=== PATIENT | male | born 1980 | race Caucasian/White ===

== ENCOUNTER 2017-02-07 14:44 | Inpatient (IN) | payer BC ==
[~2017-02-07] VITALS: Ht 182.9 cm; Wt 101.9 kg
[2017-02-07 14:50] VITALS: BP 103/72; PULSE 100; RESP 17; O2SAT 95
[2017-02-07 14:57] VITALS: BP 103/72; PULSE 107; RESP 22; TEMP 98.1; O2SAT 96
[2017-02-07] MEDS ORDERED: SODIUM CHLOR 0.9% 1000 ML INJ 1,000 ML IV ONE ×2 (15:00→16:07)
[2017-02-07] MEDS ORDERED: SODIUM CHLORIDE 0.9% FLUSH 10 ML FLUSH IVF PRN ×2 (15:00→16:15)
[2017-02-07] MEDS ORDERED: methylPREDNISolone SOD SUCC 125 MG/2 ML VIAL IVP ONE (15:00)
[2017-02-07] MEDS: RESP: ALBUTEROL 2.5 MG/IPRATROPIUM 0.5 MG NEB (SCH) INH ×2 (15:11→15:12)
--- NOTE | 2017-02-07 15:12 | PD ---
HPI Chief Complaint: OD/ Ingestion Time Seen by Provider: 15:07 Travel History International Travel<30 days: No Contact w/Intl Traveler<30days: No Traveled to known affect area: No History of Present Illness HPI Patient is a 36-year-old male brought in by EMS for evaluation after being found in an art gallery wandering. Patient states she's been awake for 2 days, he states he is desperate to sleep. He took 32 Fioricet tablets over the course of the night to obtain sleep. He was not intending to harm himself. Patient has a history of bipolar disorder. Subsequently patient reports a cough with wheezing. He states that he was on antibiotics and is beginning to feel better. He denies any other complaints at this time. He denies any visual auditory hallucinations, no suicidal or homicidal ideations. PFSH Past Medical History Asthma: Yes Bipolar Disorder: Yes Hiatal Hernia: Yes Insomnia: Yes Influenza Vaccination: No Past Surgical History Abdominal Surgery: Yes (HERNIA SURGERY) Social History Alcohol Use: Yes (OCCASIONALLY) Tobacco Use: No Substance Use: Yes (MARIJUANA) Allergies-Medications (Allergen,Severity, Reaction): Coded Allergies: No Known Allergies (Unverified , 02/07/17) Reported Meds & Prescriptions Reported Meds & Active Scripts Active Reported Fiorinal (Butalbital/Aspirin/Caffeine) 50-325-40 Mg Cap 2 Cap PO DAILY PRN Do not exceed 6 capsules/day. Proair Hfa 8.5 GM Inh (Albuterol Sulfate) 90 Mcg/Act Aer 2 Puff INH Q4-6H PRN 108 mcg/actuation Review of Systems Except as stated in HPI: all other systems reviewed are Neg Neurologic: Positive: Other (insomnia) Physical Exam Narrative GENERAL: Well-developed, well-nourished, alert male. Appears drowsy, no acute distress. SKIN: Focused skin assessment warm/dry. HEAD: Atraumatic. Normocephalic. EYES: Pupils equal and round. No scleral icterus. No injection or drainage. ENT: No nasal bleeding or discharge. Mucous membranes pink and moist. NECK: Trachea midline. No JVD. CARDIOVASCULAR: Regular rate and rhythm. No murmur appreciated. RESPIRATORY: No accessory muscle use. Clear to auscultation. Breath sounds equal bilaterally. GASTROINTESTINAL: Abdomen soft, non-tender, nondistended. Hepatic and splenic margins not palpable. MUSCULOSKELETAL: No obvious deformities. No clubbing. No cyanosis. No edema. NEUROLOGICAL: Drowsy but awake and alert. No obvious cranial nerve deficits. Motor grossly within normal limits. Speech is slow and purposeful, slightly slurred. PSYCHIATRIC: Appropriate mood and affect; insight and judgment normal. Data Data Last Documented VS Vital Signs Date Time Temp Pulse Resp B/P Pulse Ox O2 Delivery O2 Flow Rate FiO2 02/07/17 14:57 98.1 107 22 103/72 96 Room Air Orders Complete Blood Count With Diff (02/07/17 14:57) Comprehensive Metabolic Panel (02/07/17 14:57) Urinalysis - C+S If Indicated (02/07/17 14:57) Electrocardiogram (02/07/17 14:57) Oximetry (02/07/17 14:57) Iv Access Insert/Monitor (02/07/17 14:57) Ecg Monitoring (02/07/17 14:57) Psych Screen (02/07/17 14:57) Sodium Chloride 0.9% Flush (Ns Flush) (02/07/17 15:00) Drug Screen, Random Urine (02/07/17 14:57) Alcohol (Ethanol) (02/07/17 14:57) Salicylates (Aspirin) (02/07/17 14:57) Tylenol (Acetaminophen) (02/07/17 14:57) Sodium Chlor 0.9% 1000 Ml Inj (Ns 1000 M (02/07/17 15:00) Chest, Single Ap (02/07/17 ) Methylprednisolone So Succ Inj (Solumedr (02/07/17 15:00) Albuterol-Ipratropium Neb (Duoneb Neb) (02/07/17 15:00) Sodium Chloride 0.9% Flush (Ns Flush) (02/07/17 16:15) Acetylcysteine 20% Liq (Mucomyst 20% Liq (02/07/17 16:15) Acetylcysteine 20% Liq (Mucomyst 20% Liq (02/07/17 20:15) Sodium Chlor 0.9% 1000 Ml Inj (Ns 1000 M (02/07/17 16:07) Nicotine 21 Mg Patch.24 Hr (Habitrol 21 (02/07/17 16:30) Admit Order (Ed Use Only) (02/07/17 16:29) Labs Laboratory Tests Test 02/07/17 02/07/17 15:10 15:15 White Blood Count 13.7 TH/MM3 Red Blood Count 4.31 MIL/MM3 Hemoglobin 13.4 GM/DL Hematocrit 40.4 % Mean Corpuscular Volume 93.8 FL Mean Corpuscular Hemoglobin 31.1 PG Mean Corpuscular Hemoglobin 33.1 % Concent Red Cell Distribution Width 13.2 % Platelet Count 259 TH/MM3 Mean Platelet Volume 7.6 FL Neutrophils (%) (Auto) 71.9 % Lymphocytes (%) (Auto) 17.2 % Monocytes (%) (Auto) 8.1 % Eosinophils (%) (Auto) 2.2 % Basophils (%) (Auto) 0.6 % Neutrophils # (Auto) 9.9 TH/MM3 Lymphocytes # (Auto) 2.4 TH/MM3 Monocytes # (Auto) 1.1 TH/MM3 Eosinophils # (Auto) 0.3 TH/MM3 Basophils # (Auto) 0.1 TH/MM3 CBC Comment DIFF FINAL Differential Comment Sodium Level 137 MEQ/L Potassium Level 3.5 MEQ/L Chloride Level 102 MEQ/L Carbon Dioxide Level 25.5 MEQ/L Anion Gap 10 MEQ/L Blood Urea Nitrogen 21 MG/DL Creatinine 1.16 MG/DL Estimat Glomerular Filtration 71 ML/MIN Rate Random Glucose 82 MG/DL Calcium Level 8.6 MG/DL Total Bilirubin 0.3 MG/DL Aspartate Amino Transf 35 U/L (AST/SGOT) Alanine Aminotransferase 48 U/L (ALT/SGPT) Alkaline Phosphatase 95 U/L Total Protein 7.4 GM/DL Albumin 4.0 GM/DL Acetaminophen Level 42.9 MCG/ML Ethyl Alcohol Level LESS THAN 3 MG/DL Salicylates Level LESS THAN 1.7 MG/DL MDM Medical Decision Making Medical Screen Exam Complete: Yes Emergency Medical Condition: Yes Interpretation(s) Vital Signs Date Time Temp Pulse Resp B/P Pulse Ox O2 Delivery O2 Flow Rate FiO2 02/07/17 14:57 98.1 107 22 103/72 96 Room Air 02/07/17 14:50 100 17 103/72 95 Differential Diagnosis Overdose versus mood disorder versus substance abuse versus suicidal ideations versus other Narrative Course Patient is a 36-year-old male brought in by [facility] for evaluation after possible overdose. Patient states that he took 32 Fioricet over the course of the night in order to obtain sleep. He denies any intentional overdose in order to harm himself. Poison control was called by Brianne LOGAN. Care is supportive currently, they recommended EKG, salicylate level, CBC, CMP. IV fluids initiated and labs and imaging ordered and pending. Chest x-ray shows no acute disease Acetaminophen level resulted a 42.9. Patient was asked once again when he took the Fioricet. He states that he took all of the 32 tablets today. He did not state what time he took the pills as he appears to have lost time, but it was today after 7:00 this morning. Mucomyst ordered. [facility] paged for admission. Dr. Peralta accepted admission. Discussed with patient, he is agreeable to stay currently. His vital signs remained stable. Diagnosis Primary Impression: Overdose by acetaminophen Qualified Code: T39.1X1A - Overdose by acetaminophen, accidental or unintentional, initial encounter Additional Impression: Mood disorder Admitting Information Admitting Physician Requests: Admit Condition: Peggy Llamas HOGSHEAD WEIGHER February 07, 2017 15:12
[2017-02-07 15:23] LABS: AUTOMATED NEUTROPHIL # 9.9 TH/MM3 (1.8-7.7); BASOPHIL # 0.1 TH/MM3 (0-0.2); BASOPHIL % 0.6 % (0.0-2.0); EOSINOPHIL # 0.3 TH/MM3 (0-0.4); EOSINOPHIL % 2.2 % (0.0-4.0); HEMATOCRIT 40.4 % (39.0-51.0); HEMO FLAGS DIFF FINAL; LYMPH % 17.2 % (9.0-44.0); LYMPHOCYTE # 2.4 TH/MM3 (1.0-4.8); MEAN CELL VOLUME 93.8 FL (80.0-100.0); MEAN CORPUSCULAR HEMOGLOBIN 31.1 PG (27.0-34.0); MEAN CORPUSCULAR HGB CONC 33.1 % (32.0-36.0); MONO % 8.1 % (0.0-8.0); NEUT % 71.9 % (16.0-70.0); PLATELET COUNT 259 TH/MM3 (150-450); RED BLOOD COUNT 4.31 MIL/MM3 (4.50-5.90); RED CELL DISTRIBUTION WIDTH 13.2 % (11.6-17.2); WHITE BLOOD COUNT 13.7 TH/MM3 (4.0-11.0)
[2017-02-07] MEDS ORDERED: FIORINAL2 PO (15:35)
[2017-02-07] MEDS ORDERED: ALBUAER3 INH (15:35)
[2017-02-07 15:39] LABS: ANION GAP 10 MEQ/L (5-15); AST (GOT) 35 U/L (15-37); BICARBONATE 25.5 MEQ/L (21.0-32.0); BLOOD UREA NITROGEN 21 MG/DL (7-18); CHLORIDE 102 MEQ/L (98-107); GLOMERULAR FILTRATION RATE 71 ML/MIN (>89); POTASSIUM 3.5 MEQ/L (3.5-5.1); SODIUM (NA) 137 MEQ/L (136-145)
[2017-02-07 15:42] LABS: ACETAMINOPHEN 42.9 MCG/ML (10.0-30.0); ALKALINE PHOSPHATASE 95 U/L (45-117); ALT (GPT) 48 U/L (12-78); TOTAL BILIRUBIN ADULT 0.3 MG/DL (0.2-1.0)
--- NOTE | 2017-02-07 15:50 | PD ---
Physical Exam Narrative I, Dr. Griffith, have reviewed the advance practice practitioner's documentation and am in agreement, met with the patient face to face, made the diagnosis, and the medical decision making was done by me. *My assessment and Findings: Bipolar disorder vs. overdose 36yo M with bipolar disorder here after overdosing on fioricet. Pt states he has had insomnia for 15 years and last 2 days, had difficulty sleeping so decided to take 32 pills of fioricet. Pt denies any suicidal or homicidal ideation. Pt does seem bizarre. Labs reviewed acetaminophen level of 42.9 and pt was started on n-acetylcysteine. Pt is admitted to hospitalist for acetaminophen overdose and will be seen by psych on the floor. Pt given NS IVF. Data Data Last Documented VS Vital Signs Date Time Temp Pulse Resp B/P Pulse Ox O2 Delivery O2 Flow Rate FiO2 02/07/17 14:57 98.1 107 22 103/72 96 Room Air Orders Complete Blood Count With Diff (02/07/17 14:57) Comprehensive Metabolic Panel (02/07/17 14:57) Urinalysis - C+S If Indicated (02/07/17 14:57) Electrocardiogram (02/07/17 14:57) Oximetry (02/07/17 14:57) Iv Access Insert/Monitor (02/07/17 14:57) Ecg Monitoring (02/07/17 14:57) Psych Screen (02/07/17 14:57) Sodium Chloride 0.9% Flush (Ns Flush) (02/07/17 15:00) Drug Screen, Random Urine (02/07/17 14:57) Alcohol (Ethanol) (02/07/17 14:57) Salicylates (Aspirin) (02/07/17 14:57) Tylenol (Acetaminophen) (02/07/17 14:57) Sodium Chlor 0.9% 1000 Ml Inj (Ns 1000 M (02/07/17 15:00) Chest, Single Ap (02/07/17 ) Methylprednisolone So Succ Inj (Solumedr (02/07/17 15:00) Albuterol-Ipratropium Neb (Duoneb Neb) (02/07/17 15:00) Sodium Chloride 0.9% Flush (Ns Flush) (02/07/17 16:15) Acetylcysteine 20% Liq (Mucomyst 20% Liq (02/07/17 16:15) Acetylcysteine 20% Liq (Mucomyst 20% Liq (02/07/17 20:15) Sodium Chlor 0.9% 1000 Ml Inj (Ns 1000 M (02/07/17 16:07) Nicotine 21 Mg Patch.24 Hr (Habitrol 21 (02/07/17 16:30) Admit Order (Ed Use Only) (02/07/17 16:29) Labs Laboratory Tests Test 02/07/17 02/07/17 15:10 15:15 White Blood Count 13.7 TH/MM3 Red Blood Count 4.31 MIL/MM3 Hemoglobin 13.4 GM/DL Hematocrit 40.4 % Mean Corpuscular Volume 93.8 FL Mean Corpuscular Hemoglobin 31.1 PG Mean Corpuscular Hemoglobin 33.1 % Concent Red Cell Distribution Width 13.2 % Platelet Count 259 TH/MM3 Mean Platelet Volume 7.6 FL Neutrophils (%) (Auto) 71.9 % Lymphocytes (%) (Auto) 17.2 % Monocytes (%) (Auto) 8.1 % Eosinophils (%) (Auto) 2.2 % Basophils (%) (Auto) 0.6 % Neutrophils # (Auto) 9.9 TH/MM3 Lymphocytes # (Auto) 2.4 TH/MM3 Monocytes # (Auto) 1.1 TH/MM3 Eosinophils # (Auto) 0.3 TH/MM3 Basophils # (Auto) 0.1 TH/MM3 CBC Comment DIFF FINAL Differential Comment Sodium Level 137 MEQ/L Potassium Level 3.5 MEQ/L Chloride Level 102 MEQ/L Carbon Dioxide Level 25.5 MEQ/L Anion Gap 10 MEQ/L Blood Urea Nitrogen 21 MG/DL Creatinine 1.16 MG/DL Estimat Glomerular Filtration 71 ML/MIN Rate Random Glucose 82 MG/DL Calcium Level 8.6 MG/DL Total Bilirubin 0.3 MG/DL Aspartate Amino Transf 35 U/L (AST/SGOT) Alanine Aminotransferase 48 U/L (ALT/SGPT) Alkaline Phosphatase 95 U/L Total Protein 7.4 GM/DL Albumin 4.0 GM/DL Acetaminophen Level 42.9 MCG/ML Ethyl Alcohol Level LESS THAN 3 MG/DL Salicylates Level LESS THAN 1.7 MG/DL MDM Supervised Visit with MATTHEW: Yes Interpretation(s) EKG: Sinus tachycardia at 100bpm. Narrow QRS. Normal axis. No ST segment elevation or depression. QTc 415ms. Diagnosis Primary Impression: Overdose by acetaminophen Qualified Code: T39.1X1A - Overdose by acetaminophen, accidental or unintentional, initial encounter Admitting Information Admitting Physician Requests: Vy Quezada DO February 07, 2017 15:50
--- NOTE | 2017-02-07 15:56 | RADRPT ---
EXAM DATE/TIME: 02/07/2017 15:36 [place] COMPARISON: No previous studies available for comparison. INDICATIONS : Coughing, wheezing, no chest pain MEDICAL HISTORY : asthma, insomnia SURGICAL HISTORY : None. ENCOUNTER: Initial ACUITY: 2 days PAIN SCORE: 0/10 LOCATION: Bilateral chest FINDINGS: A single view of the chest demonstrates the lungs to be symmetrically aerated without evidence of mas s, infiltrate or effusion. The cardiomediastinal contours are unremarkable. Osseous structures are intact. CONCLUSION: No acute disease. Juan C Saucedo MD on February 07, 2017 at 15:54 Board Certified Radiologist. This report was verified electronically.
[2017-02-07] MEDS ORDERED: ACETYLCYSTEINE 20% 6,000 MG/30 ML ORAL SOLN VIAL PO ONE (16:15)
[2017-02-07] MEDS ORDERED: NICOTINE 21 MG/24 HR PATCH T-DERMAL ONE (16:30)
[2017-02-07 16:38] VITALS: BP 105/71; PULSE 112; RESP 19; O2SAT 100
[2017-02-07 17:13] LABS: BLOOD, URINE NEG (NEG); GLUCOSE,URINE NEG (NEG); KETONE, URINE TRACE mg/dL (NEG); NITRITE,URINE NEG (NEG); URINE COLOR LIGHT-YELLOW (YELLW/STRAW)
[2017-02-07 17:34] LABS: COMMENT (UR) CULT NOT INDICATED; CULTURE IF INDICATED CULT NOT INDICATED
--- NOTE | 2017-02-07 17:35 | HHI.HP ---
[facility] Unknown Admission Diagnosis OVERDOSE Diagnoses: Chief Complaint: Fioricet overdose Travel History International Travel<30 Days: No Contact w/Intl Traveler <30 Da: No Traveled to Known Affected Are: No History of Present Illness Patient is a 36-year-old male with PMHx of asthma, bipolar disorder, insomnia who came in to the hospital after being found wandering in an art gallery. Patient states he took about 30+ Fioricet tablets because he is desperate to sleep. Reports he's been awake for more than 2-3 days. Patient states that he unintentionally took the medication, without intention to harm himself. Reports he used to medication secondary to having a lipoma that causes headaches. Patient reports he has history of bipolar disorder. Denies pain and discomfort. Denies SOB/ dyspnea. Denies chest pain, palpitations, headaches, dizziness. Denies fevers, chills, n/v/d. Acetaminophen level 42.9. WBC 13.7, RBC 4.31 Chest x-ray no acute disease Review of Systems Constitutional: DENIES: Fever, Chills, Dizziness Endocrine: DENIES: Heat/cold intolerance Eyes: DENIES: Blurred vision, Diplopia, Eye pain Ears, nose, mouth, throat: DENIES: Tinnitus, Hearing loss, Nasal discharge, Oral lesions Respiratory: COMPLAINS OF: Cough, DENIES: Apneas, Wheezing, Hemoptysis Cardiovascular: DENIES: Chest pain, Palpitations, Syncope, Dyspnea on Exertion Gastrointestinal: DENIES: Abdominal pain, Black stools, Bloody stools, Constipation, Nausea, Vomiting Musculoskeletal: DENIES: Joint pain, Muscle aches Integumentary: DENIES: Abnormal pigmentation Immunologic/allergic: DENIES: Eczema Neurologic: DENIES: Abnormal gait, Localized weakness, Paresthesias Psychiatric: DENIES: Suicidal Ideation, Homicidal Ideation Except as stated in HPI: all other systems reviewed are Neg Past Family Social History Past Medical History Asthma Bipolar disorder Insomnia Lipoma Thyroid problems without hypo or hyper thyroidism Past Surgical History Umbilical hernia repair with mesh 2 years ago Right hand surgery (Surgery Reported Medications Reported Meds & Active Scripts Active Reported Fiorinal (Butalbital/Aspirin/Caffeine) 50-325-40 Mg Cap 2 Cap PO DAILY PRN Do not exceed 6 capsules/day. Proair Hfa 8.5 GM Inh (Albuterol Sulfate) 90 Mcg/Act Aer 2 Puff INH Q4-6H PRN 108 mcg/actuation Allergies: Coded Allergies: No Known Allergies (Unverified , 02/07/17) Active Ordered Medications Current Medications Medications (Trade) Dose Ordered Sig/[place] Route Start Time Stop Time Status Last Admin (NS Flush) 2 ml UNSCH PRN IVF 02/07/17 15:00 (NS Flush) 2 ml UNSCH PRN IVF 02/07/17 16:15 (Mucomyst 20% Liq) 6,800 mg Q4H PO 02/07/17 20:15 Family History Father have heart disease, diabetes Mother alcohol use Social History Lives with girlfriend of 18 years Occasional alcohol use Former smoker, quit 7 years ago, 2 pack per day smoking Previous marijuana use Physical Exam Vital Signs Vital Signs Date Time Temp Pulse Resp B/P Pulse Ox O2 Delivery O2 Flow Rate FiO2 02/07/17 16:38 112 19 105/71 100 Room Air 02/07/17 14:57 98.1 107 22 103/72 96 Room Air 02/07/17 14:50 100 17 103/72 95 Physical Exam GENERAL: This is a well-nourished, well-developed patient, in no apparent distress. SKIN: Warm and dry. Abrasion right george area HEAD: Normocephalic. No temporal or scalp tenderness. EYES: Pupils equal round and reactive. No scleral icterus. No injection or drainage. ENT: Nose without bleeding. Throat without erythema. Uvula midline. Airway patent. NECK: Trachea midline. No JVD or lymphadenopathy. CARDIOVASCULAR: Tachycardia without murmurs, gallops, or rubs. RESPIRATORY: Clear to auscultation. Breath sounds equal bilaterally. No wheezes , rales, or rhonchi. GASTROINTESTINAL: Abdomen soft, non-tender, nondistended. Bowel sounds active 4 MUSCULOSKELETAL: Extremities without clubbing, cyanosis, or edema. No joint tenderness, effusion, or edema noted. NEUROLOGICAL: Awake and alert. Oriented to time, place, person. Slight delay with thought process and speech. Motor and sensory grossly within normal limits. Laboratory Laboratory Tests Test 02/07/17 02/07/17 15:10 15:15 White Blood Count 13.7 Red Blood Count 4.31 Hemoglobin 13.4 Hematocrit 40.4 Mean Corpuscular Volume 93.8 Mean Corpuscular Hemoglobin 31.1 Mean Corpuscular Hemoglobin 33.1 Concent Red Cell Distribution Width 13.2 Platelet Count 259 Mean Platelet Volume 7.6 Neutrophils (%) (Auto) 71.9 Lymphocytes (%) (Auto) 17.2 Monocytes (%) (Auto) 8.1 Eosinophils (%) (Auto) 2.2 Basophils (%) (Auto) 0.6 Neutrophils # (Auto) 9.9 Lymphocytes # (Auto) 2.4 Monocytes # (Auto) 1.1 Eosinophils # (Auto) 0.3 Basophils # (Auto) 0.1 CBC Comment DIFF FINAL Differential Comment Sodium Level 137 Potassium Level 3.5 Chloride Level 102 Carbon Dioxide Level 25.5 Anion Gap 10 Blood Urea Nitrogen 21 Creatinine 1.16 Estimat Glomerular Filtration 71 Rate Random Glucose 82 Calcium Level 8.6 Total Bilirubin 0.3 Aspartate Amino Transf 35 (AST/SGOT) Alanine Aminotransferase 48 (ALT/SGPT) Alkaline Phosphatase 95 Total Protein 7.4 Albumin 4.0 Acetaminophen Level 42.9 Ethyl Alcohol Level LESS THAN 3 Salicylates Level LESS THAN 1.7 Result Diagram: 02/07/17 1510 02/07/17 1510 Assessment and Plan Problem List: (1) Overdose by acetaminophen ICD Code: T39.1X1A Status: Acute (2) Mood disorder ICD Code: F39 Status: Acute Assessment and Plan Patient is a 36-year-old male with PMHx of asthma, bipolar disorder, insomnia who came in to the hospital after being found wandering in an art gallery. Patient states he took about 30+ Fioricet tablets because he is desperate to sleep. Reports he's been awake for more than 2-3 days. Patient states that he unintentionally took the medication, without intention to harm himself. Reports he used to medication secondary to having a lipoma that causes headaches. Fioricet overdose Tylenol overdose - Patient unintentionally took Fioricet >30tablets to aid him to sleep - Acetaminophen level 42.9 - Patient was given Mucomyst 13,600 in the ED, 2 L IV NS fluid bolus, Solu- Medrol 125 mg - EKG reviewed by me sinus tachycardia heart rate 100, nonspecific ST elevation, QT interval within normal - Mucomyst 20% liquid 6800 mg every 4 hours based on 72 hour treatment protocol. - Poison control notified by Brianne LOGAN. Continue to report with poison control. - Salicylate level within normal, CBC with slight leukocytosis, CMP slightly elevated BUN of 21, EGFR 71, otherwise liver enzymes within normal - Repeat labs in the morning CBC, CMP, acetaminophen level - Place on telemetry. - Neuro checks - patient neurological status with slight delay on thought process and speech may be caused by the medication, unknown baseline neuro but oriented to time, place, and person Asthma, not in exacerbation - DuoNeb's when necessary - Chest x-ray showed no acute disease DVT prop SCDs Written by Marcelo Resendez, acting as scribe for Dr. Peralta on 02/07/17 at 17:30. Code Status Full code Discussed Condition With Patient, nursing, ED attending Attending Statement The exam, history, and the medical decision-making described in the above note were completed with the assistance of the mid-level provider. I reviewed and agree with the findings presented. I attest that I had a [id number] encounter with the patient on the same day, and personally performed and documented my assessment and findings in the medical record. Patient has no complaints. He denies any abdominal pain or any nausea or vomiting. Patient stated that he ingested Fioricets that he able to sleep. Gen NAD Resp CTA B/L Abd soft NDNT. No hepatosplenomegaly. Neuro: AAO X 3 but slow in speech. Motor and sensory grossly intact. Overdose unintentional -Acetaminophen levels elevated but normal LFTs. -Patient on Mucomyst protocol. -Continue to monitor clinically. Problem Qualifiers (1) Overdose by acetaminophen: Qualified Code: T39.1X1A - Overdose by acetaminophen, accidental or unintentional, initial encounter Marcelo Amaya February 07, 2017 17:35 Alicia Peralta MD February 07, 2017 18:46
[2017-02-07] MEDS ORDERED: SENNOSIDES 8.6 MG TAB PO PRN (17:45)
[2017-02-07] MEDS ORDERED: ONDANSETRON HCL 4 MG/2 ML VIAL IVP PRN (17:45)
[2017-02-07] MEDS ORDERED: NALOXONE HCL 0.4 MG/ML AMP IV PRN (17:45)
[2017-02-07] MEDS ORDERED: RESP: ALBUTEROL 2.5 MG/IPRATROPIUM 0.5 MG NEB (PRN) NEB (17:45)
[2017-02-07 18:44] VITALS: BP 123/76; PULSE 109; RESP 18; TEMP 98.5; O2SAT 96
[2017-02-07 20:13] VITALS: PULSE 107
[2017-02-07] MEDS ORDERED: LITH600C PO (20:13)
[2017-02-07] MEDS ORDERED: TRAZ100T4 PO (20:13)
[2017-02-07] MEDS ORDERED: SERO100T PO (20:13)
[2017-02-07] MEDS ORDERED: BUSP5TAB PO (20:13)
[2017-02-07] MEDS ORDERED: TEMAZEPAM 15 MG CAP PO PRN (20:30)
[2017-02-07] MEDS: ACETYLCYSTEINE 20% 6,000 MG/30 ML ORAL SOLN VIAL PO SCH (21:38)
[2017-02-07 21:41] VITALS: BP 113/60; PULSE 109; RESP 20; TEMP 97.1; O2SAT 97
[2017-02-07 23:29] LABS: AMPHETAMINE, URINE NEG (NEG); BARBITURATES, URINE POS (NEG); COCAINE, URINE NEG (NEG)
[2017-02-08] MEDS ORDERED: ALPRAZolam 0.5 MG TAB PO ONE (00:45)
[2017-02-08] MEDS: ACETYLCYSTEINE 20% 6,000 MG/30 ML ORAL SOLN VIAL PO SCH ×4 (01:25→12:15)
[2017-02-08] MEDS ORDERED: QUEtiapine FUMARATE 100 MG TAB PO SCH (01:27)
[2017-02-08] MEDS ORDERED: traZODone HCL 100 MG TAB PO ONE (01:30)
--- NOTE | 2017-02-08 01:36 | HHI.PR ---
Addendum to Inpatient Note Addendum Reason: Additional Documentation Additional Information I was notified by nursing the patient wanted to leave AMA. His girlfriend was contacted who raised concern about suicide attempt. He has a history of same per the girlfriend. On my evaluation, the patient is pacing, pressured speech. Racing thoughts. States he hasn't slept for 5 days. Although he is alert and oriented, he has poor insight into his medical condition and does not have capacity to leave AMA. Based on discussion with nursing, significant other and my evaluation, patient is not a safe discharge. Patient reports that "he will take anything or do anything to go to sleep when he gets home". [place] noting the patient took 30 tab of Fioricet in an attempt to sleep. - Patient is obviously manic. He is not a safe discharge. Patient will be Jensen acted until he is seen by psychiatry. - Will resume his home medications including Seroquel and trazodone to help with sleep. Zan Hyatt MD February 08, 2017 01:36
[2017-02-08 06:34] VITALS: BP 123/73; PULSE 91; RESP 18; TEMP 96.1; O2SAT 99
[2017-02-08 07:03] LABS: AUTOMATED NEUTROPHIL # 12.3 TH/MM3 (1.8-7.7); BASOPHIL % 0.1 % (0.0-2.0); HEMATOCRIT 37.6 % (39.0-51.0); HEMO FLAGS DIFF FINAL; LYMPH % 11.2 % (9.0-44.0); LYMPHOCYTE # 1.7 TH/MM3 (1.0-4.8); MEAN CELL VOLUME 93.2 FL (80.0-100.0); MEAN CORPUSCULAR HGB CONC 34.4 % (32.0-36.0); MONO % 7.3 % (0.0-8.0); NEUT % 81.4 % (16.0-70.0); PLATELET COUNT 251 TH/MM3 (150-450); RED BLOOD COUNT 4.04 MIL/MM3 (4.50-5.90); RED CELL DISTRIBUTION WIDTH 13.3 % (11.6-17.2); WHITE BLOOD COUNT 15.2 TH/MM3 (4.0-11.0)
[2017-02-08 07:44] LABS: ACETAMINOPHEN LESS THAN 2.0 MCG/ML (10.0-30.0); ALKALINE PHOSPHATASE 93 U/L (45-117); ALT (GPT) 44 U/L (12-78); ANION GAP 9 MEQ/L (5-15); AST (GOT) 25 U/L (15-37); BICARBONATE 25.3 MEQ/L (21.0-32.0); BLOOD UREA NITROGEN 16 MG/DL (7-18); CHLORIDE 108 MEQ/L (98-107); GLOMERULAR FILTRATION RATE 95 ML/MIN (>89); POTASSIUM 3.6 MEQ/L (3.5-5.1); SODIUM (NA) 142 MEQ/L (136-145); TOTAL BILIRUBIN ADULT 0.2 MG/DL (0.2-1.0)
[2017-02-08 08:00] VITALS: BP 121/76; PULSE 92; RESP 18; TEMP 97.4; O2SAT 95
[2017-02-08 12:00] VITALS: BP 139/90; PULSE 84; RESP 18; TEMP 97.7; O2SAT 97
[2017-02-08] MEDS ORDERED: ACET20SO3 PO (12:42)
--- NOTE | 2017-02-08 12:42 | HHI.DS ---
Discharge Summary Admission Date February 07, 2017 Discharge Date: February 08, 2017 Admitting Diagnosis OVERDOSE (1) Overdose by acetaminophen ICD Code: T39.1X1A Diagnosis: Principal (2) Bipolar disorder ICD Code: F31.9 Diagnosis: Principal Procedures none Brief History - From Admission Patient is a 36-year-old male with PMHx of asthma, bipolar disorder, insomnia who came in to the hospital after being found wandering in an art gallery. Patient states he took about 30+ Fioricet tablets because he is desperate to sleep. Reports he's been awake for more than 2-3 days. Patient states that he unintentionally took the medication, without intention to harm himself. Reports he used to medication secondary to having a lipoma that causes headaches. Patient reports he has history of bipolar disorder. Denies pain and discomfort. Denies SOB/ dyspnea. Denies chest pain, palpitations, headaches, dizziness. Denies fevers, chills, n/v/d. Acetaminophen level 42.9. WBC 13.7, RBC 4.31 Chest x-ray no acute disease CBC/BMP: 02/08/17 0616 02/08/17 0616 Significant Findings Laboratory Tests Test 02/07/17 02/07/17 02/07/17 02/08/17 15:10 15:15 16:45 06:16 White Blood Count 13.7 TH/MM3 15.2 TH/MM3 (4.0-11.0) (4.0-11.0) Red Blood Count 4.31 MIL/MM3 4.04 MIL/MM3 (4.50-5.90) (4.50-5.90) Neutrophils (%) (Auto) 71.9 % 81.4 % (16.0-70.0) (16.0-70.0) Monocytes (%) (Auto) 8.1 % (0.0-8.0) Neutrophils # (Auto) 9.9 TH/MM3 12.3 TH/MM3 (1.8-7.7) (1.8-7.7) Monocytes # (Auto) 1.1 TH/MM3 1.1 TH/MM3 (0-0.9) (0-0.9) Blood Urea Nitrogen 21 MG/DL (7-18) Estimat Glomerular Filtration 71 ML/MIN (>89) Rate Acetaminophen Level 42.9 MCG/ML LESS THAN 2.0 (10.0-30.0) MCG/ML (10.0-30.0) Salicylates Level LESS THAN 1.7 MG/DL (2.8-20.0) Urine Ketones TRACE mg/dL (NEG) Urine Barbiturates Screen POS (NEG) Hemoglobin 12.9 GM/DL (13.0-17.0) Hematocrit 37.6 % (39.0-51.0) Chloride Level 108 MEQ/L (98-107) Random Glucose 111 MG/DL (74-106) Calcium Level 8.2 MG/DL (8.5-10.1) Imaging Last Impressions Chest X-Ray 02/07/17 0000 Signed Impressions: Service Date/Time: Tuesday, February 07, 2017 15:36 - CONCLUSION: No acute disease. Juan C Saucedo MD PE at Discharge GENERAL: in NAD SKIN: Warm and dry. HEAD: Normocephalic. EYES: No scleral icterus. No injection or drainage. NECK: Supple, trachea midline. No JVD or lymphadenopathy. CARDIOVASCULAR: Regular rate and rhythm without murmurs, gallops, or rubs. RESPIRATORY: Breath sounds equal bilaterally. No accessory muscle use. GASTROINTESTINAL: Abdomen soft, non-tender, nondistended. MUSCULOSKELETAL: No cyanosis, or edema. BACK: Nontender without obvious deformity. No CVA tenderness. Pt update on day of discharge Follow-up for Fioricet overdose Patient has no complaints. He stated that he is doing very well. He is asking to go home. Patient denies any suicidal ideations. Patient was Jensen acted. Secondary to his go from being concern for suicidal ideation. Patient also had pressure speech and there is concern for a manic episode. Patient explained to me that he is not trying to harm himself he has so much to live for. He stated that he is girlfriend, a house, and a job and does not want to give any of that. Patient stated that he just had a hard time sleeping for the past 5 days and did something very stupid. Patient denies any depression or homicidal ideation. Hospital Course Overdose unintentional -Acetaminophen levels elevated but normal LFTs. -So patient was put on the 72 hour oral Mucomyst protocol. -His acetaminophen level is now within normal limits. LFTs continued to be stable. -We'll continue with the 72 hour protocol first total 17 doses. -Questionable suicidal ideation but patient declined. Patient was Camila acted. Order was placed for sitter but dealt with charge nurse in which she stated that patient was able to transfer to [facility]/psych for close monitoring. -Upon transfer to [facility] psych patient clinically doing well and was asymptomatic. Camila act -Due to questionable suicidal ideations from his girlfriend. Although patient denied any suicidal ideations. -Psychiatrist already consulted. Bipolar disorder -Home medication resumed. -Patient does seem manic with pressured speech. Psychiatrist already consulted. Insomnia -Trazodone resume. Pt Condition on Discharge: Good Discharge Disposition: Disc to Psych Care Fac Discharge Time: > 30 minutes Discharge Instructions DIET: Follow Instructions for: As Tolerated, No Restrictions Activities you can perform: Regular-No Restrictions New Medications: Acetylcysteine Liq/Neb (Acetylcysteine Liq/Neb) 200 mg/ml Soln 6800 MG PO Q4H tylenol overdose #12 Ref 0 ML Continued Medications: Albuterol 8.5 GM Inh (Proair Hfa 8.5 GM Inh) 90 Mcg/Act Aer 2 PUFF INH Q4-6H 108 mcg/actuation PRN SHORTNESS OF BREATH #1 Ref 0 INHALER Buspirone (Buspirone) 5 Mg Tab 5 MG PO DAILY Anxiety Ref 0 TAB [place] Carbonate ([place] Carbonate) 600 Mg Cap 600 MG PO BID Ref 0 CAP Quetiapine (Seroquel) 100 Mg Tab 100 MG PO HS #30 Ref 0 TAB Trazodone (Trazodone) 100 Mg Tab 100 MG PO HS Control Depression #30 Ref 0 TAB Discontinued Medications: Glwnotsvhc-Brpqhwu-Ypsupbir (Fiorinal) 50-325-40 Mg Cap 2 CAP PO DAILY Do not exceed 6 capsules/day. PRN HEADACHE Ref 0 CAP Alicia Peralta MD February 08, 2017 12:42
--- NOTE | 2017-02-08 15:27 | EKG ---
Date Performed: 02/07/2017 Time Performed: 15:13:12 PTAGE: 36 years EKG: SINUS TACHYCARDIA MODERATE INTRAVENTRICULAR CONDUCTION DELAY NONSPECIFIC ST ELEVATION ABNOR MAL RHYTHM ECG NO PREVIOUS TRACING DOCTOR: Stewart Singh Interpretating Date/Time 02/08/2017 15:24:09
== END 2017-02-08 13:49 | DRG 918 ==
LOC: NEPC 14:44 → NEDA 16:31 → INTOOBSV 16:31 → HOCB 18:36 → OBSVTOIN 02-08 09:58
PROVIDERS: ADMIT Family Medicine; ATTEND Family Medicine
DX: T39.1X1A Poisoning by 4-Aminophenol derivatives, accidental (unintentional), initial encounter (principal); F31.9 Bipolar disorder, unspecified; D17.9 Benign lipomatous neoplasm, unspecified; J45.909 Unspecified asthma, uncomplicated; Y92.9 Unspecified place or not applicable; G47.00 Insomnia, unspecified; Z87.891 Personal history of nicotine dependence; G44.89 Other headache syndrome
CPT/HCPCS: 71010; 80053; 80307; 81001; 85025; 93005; 94640; 94664; 96361; 96374; G0378; J2930; J7030

== ENCOUNTER 2017-02-08 14:35 | Inpatient (IN) | payer BC ==
[~2017-02-08] VITALS: Ht 182.9 cm; Wt 87.8 kg
[~2017-02-08 14:35] MED LIST: ACET20SO3 PO; ALBUAER3 INH; BUSP5TAB PO; FIORINAL2 PO; LITH600C PO; SERO100T PO; TRAZ100T4 PO
[2017-02-08] MEDS ORDERED: LORazepam 2 MG/ML VIAL IM PRN ×2 (15:30)
[2017-02-08] MEDS ORDERED: LORazepam 0.5 MG TAB PO PRN (15:30)
[2017-02-08] MEDS ORDERED: ALUMINUM/MAGNESIUM/SIMETH 30 ML CUP PO PRN (15:30)
[2017-02-08] MEDS ORDERED: MAGNESIUM HYDROXIDE SUSP 30 ML CUP PO PRN (15:30)
[2017-02-08] MEDS: NICOTINE 21 MG/24 HR PATCH T-DERMAL SCH (15:30)
--- NOTE | 2017-02-08 15:49 | HHI.HP ---
Provisional Diagnosis Admission Date February 08, 2017 at 14:35 [place] I. Bipolar disorder, mixed episode, [place] II. Deferred [place] III. Asthma and migraine [place] IV. Unemployed [place] V. 45 Certification of Person's Competence To Provide Express and Informed Consent I have personally examined Igor Ochoa , a person being served at [facility] on, February 08, 2017 15:40. Express and informed consent means consent voluntarily given in writing, by a competent person, after sufficient explanation and disclosure of the subject matter involved to enable the person to make a knowing and willful decision without any element of force, fraud, deceit, duress, or other form of constraint or coercion. This person is 18 years of age or older, is not now known to be incompetent to consent to treatment with a guardian advocate, and does not have a health care surrogate or proxy currently making medical treatment decisions. I have found this person to be one of the following: [] Competent to provide express and informed consent, as defined above, for voluntary admission to this facility and is competent to provide express and informed consent for treatment. He/she has the consistent capacity to make well reasoned, willful, and knowing decisions concerning his or her medical or mental health treatment. The person fully and consistently understands the purpose of the admission for examination/placement and is fully capable of personally exercising all rights assured under [place] Incompetent to provide express and informed consent to voluntary admission, and this is incompetent to provide express and informed consent to treatment. The person must be transferred to involuntary status and a petition for a guardian advocate filed with the Circuit Court. [X] Refusing to provide express and informed consent to voluntary admission but is competent to provide express and informed consent for treatment. The person must be discharged or transferred to involuntary status. Form shall be completed within 24 hours of a person's arrival at the receiving facility and filed in the clinical record of each person: 1. Admitted on a voluntary basis 2. Permitted to provide express and informed consent to his/her own treatment 3. Allowed to transfer from involuntary to voluntary status 4. Prior to permitting a person to consent to his or her own treatment after having been previously found incompetent to consent to treatment. History of Present Illness Capacity: Has Capacity HPI Patient is a 36-year-old man, domiciled in [place] with girlfriend, unemployed, with psychiatric history of bipolar disorder, 1 previous hospitalization, no previous suicidal attempts, active outpatient care with Dr. Torres, he is on trazodone 100 mg, Seroquel 100 mg, lithium 600 mg twice a day, medical history of asthma, who came in to the hospital after being found wandering in an art gallery. Patient states he took about 30+ Fioricet tablets because he is desperate to sleep. Reports he's been awake for more than 2-3 days. Patient states that he unintentionally took the medication, without intention to harm himself. Reports he used to medication secondary to having a lipoma that causes headaches. On psychiatric evaluation today patient is found calm, cooperative, a little bit irritable, patient says that he doesn' t understand why he was Jensen acted. Patient denies depressive symptoms, he denies anhedonia, he denies hopelessness, he denies helplessness, he denies problems with appetite or concentration. He just reports 5-6 days of total insomnia. He says that he hasn't been able to sleep for at all. For this reason he overdosed with his migraine medication "I just wanted to sleep". At this moment patient denies suicidal or homicidal ideation, he denies visual and auditory hallucinations. No pressured speech, no agitation, no restlessness, no paranoia or delusions are present. However, at times patient seems to be a little bit confused and disorganized, but easily redirectable. Collateral information from his Albina was obtained, : She says that the patient has been disorganized, drinking alcohol and abusing his medication for migraine. She says that he hasn't slept in the last days, and he spent the night pacing around, sometimes talking to himself, and acting very bizarrely. She says that she feels afraid to have him home. She is not very sure that he is taking his psychotropics as he is supposed to be taking them. The patient reports occasional use of marijuana and alcohol, denies other illicit drugs. Review of Systems Constitutional: DENIES: Diaphoretic episodes, Fatigue, Fever, Weight gain, Weight loss, Chills, Dizziness, Change in appetite, Night Sweats Endocrine: DENIES: Heat/cold intolerance, Polydipsia, Polyuria, Polyphagia Eyes: DENIES: Blurred vision, Diplopia, Eye inflammation, Eye pain, Vision loss , Photosensitivity, Double Vision Ears, nose, mouth, throat: DENIES: Tinnitus, Hearing loss, Vertigo, Nasal discharge, Oral lesions, Throat pain, Hoarseness, Ear Pain, Running Nose, Epistaxis, Sinus Pain, Toothache, Odynophagia Respiratory: COMPLAINS OF: Cough, Sputum production, DENIES: Apneas, Snoring, Wheezing, Hemoptysis, Shortness of breath Cardiovascular: DENIES: Chest pain, Palpitations, Syncope, Dyspnea on Exertion , PND, Lower Extremity Edema, Orthopnea, Claudication Gastrointestinal: DENIES: Abdominal pain, Black stools, Bloody stools, Constipation, Diarrhea, Nausea, Vomiting, Difficulty Swallowing, Anorexia Musculoskeletal: DENIES: Joint pain, Muscle aches, Stiffness, Joint Swelling, Back pain, Neck pain Hematologic/lymphatic: DENIES: Bruising, Lymphadenopathy Immunologic/allergic: DENIES: Eczema, Urticaria Neurologic: DENIES: Abnormal gait, Headache, Localized weakness, Paresthesias, Seizures, Speech Problems, Tremor, Poor Balance Psychiatric: DENIES: Anxiety, Confusion, Mood changes, Depression, Hallucinations, Agitation, Suicidal Ideation, Homicidal Ideation, Delusions Substance Abuse History Drugs/Alcohol past 12 months Patient reports occasional use of marijuana and alcohol, Past Family Social History Coded Allergies: No Known Allergies (Unverified , 02/07/17) Active Scripts Acetylcysteine Liq/Neb 200 mg/ml Soln6,800 Mg PO Q4H #12 ML Ref 0 Prov:Alicia Peralta MD 02/08/17 Reported Medications [place] Carbonate 600 Mg [id number] Mg PO BID Ref 0 02/07/17 Trazodone 100 Mg Psn907 Mg PO HS #30 TAB Ref 0 02/07/17 Quetiapine (Seroquel)100 Mg Yzz594 Mg PO HS #30 TAB Ref 0 02/07/17 Buspirone 5 Mg Tab5 Mg PO DAILY Ref 0 02/07/17 Albuterol 8.5 GM Inh (Proair Hfa 8.5 GM Inh)90 Mcg/Act Aer2 Puff INH Q4-6H PRN ( SHORTNESS OF BREATH) #1 INHALER Ref 0 108 mcg/actuation 02/07/17 Discontinued Reported Medications Jvhfybpkff-Tzopmjp-Mhcoiszk (Fiorinal)50-325-40 Mg Cap2 Cap PO DAILY PRN ( HEADACHE) Ref 0 Do not exceed 6 capsules/day. 02/07/17 Current Medications Medications (Trade) Dose Ordered Sig/[place] Route Start Time Stop Time Status Last Admin (Ativan) 1 mg Q6H PRN PO 02/08/17 15:30 (Ativan Inj) 1 mg Q6H PRN IM 02/08/17 15:30 (Tylenol) 650 mg Q4H PRN PO 02/08/17 15:30 (Milk Of Magnesia Liq) 30 ml DAILY PRN PO 02/08/17 15:30 (Mag-Al Plus Susp Liq) 30 ml Q6H PRN PO 02/08/17 15:30 (Habitrol 21 Mg Patch.24 Hr) 1 patch DAILY T-DERMAL 02/08/17 15:30 ([place] Carbonate) 600 mg BID PO 02/08/17 21:00 (SEROquel) 100 mg HS PO 02/08/17 21:00 (Desyrel) 100 mg HS PO 02/08/17 21:00 Miscellaneous Information 1 HS T-DERMAL 02/08/17 21:00 Family History Patient denies family psychiatric history Social History Patient was born and raised in [place], he lives with girlfriend in [place], is unemployed, he has a year of college Patient's Strengths (min. 2) Verbal communication, support from girlfriend Physical Exam On physical exam, no tremors, no psychomotor retardation or agitation, no stiffness, no EPS, no withdrawal symptoms, gait disturbance present Lab Results Initially Acetaminophen level 42.9. WBC 13.7, RBC 4.31 Chest x-ray no acute disease Mental Status Examination Appearance man, good hygiene, [facility], calm, cooperative Speech: Fast Orientation: x3, Person, Place, Date, Situation Thought Process: Circumstantial, Loose Association Thought Content: Unremarkable Hallucination Type: None Suicidal Ideation: No Previous Suicide Attempts: No Homicidal Ideation: No Judgment: WNL Mood: Appropriate Motor Activity: Normal gait Assessment & Plan Problem List: (1) Bipolar disorder Assessment & Plan: At the moment of this evaluation the patient presents features of chay, loosening of association, circumstantiality speech, lacks of sleep for about 5 days, disorganized behavior, internal probation, and a recent suicide attempt by overdosing. Patient is unable to elaborate about the reason and circumstances of suicidal attempt, most probably he is minimizing. At this moment the patient represents an acute danger to himself and poses a high risk of suicidality, he needs psychiatric admission for stabilization and safety. Will restart current psychotropics, increased lithium level to 600 mg twice a day to achieve therapeutic levels. wine cellar worker intervention for psychosocial assessment, counseling, collateral information and discharge planning. Consult hospitalist for underlying medical condition, will consult psychiatry for second opinion. We will take appropriate safety measures. ICD Code: F31.9 Assessment & Plan Estimated LOS: days Problem Qualifiers (1) Bipolar disorder: Paulie Bass MD February 08, 2017 15:49
--- NOTE | 2017-02-08 15:52 | PD.CONS ---
Provisional Diagnosis Admission Date February 08, 2017 at 14:35 [place] I. 1. Chronic insomnia 2. History of mood disorder [place] II. Deferred [place] V. GAF is unclear at present History of Present Illness Service Psychiatry Consult Requested By Dr. Bass Reason for Consult Second opinion for involuntary psychiatric hospitalization Primary Care Physician Unknown HPI From Dr. Bass's H&P: Patient is a 36-year-old man, domiciled in [place] with girlfriend, unemployed, with psychiatric history of bipolar disorder, 1 previous hospitalization, no previous suicidal attempts, active outpatient care with Dr. Torres, he is on trazodone 100 mg, Seroquel 100 mg, lithium 600 mg twice a day, medical history of asthma, who came in to the hospital after being found wandering in an art gallery. Patient states he took about 30+ Fioricet tablets because he is desperate to sleep. Reports he's been awake for more than 2-3 days. Patient states that he unintentionally took the medication, without intention to harm himself. Reports he used to medication secondary to having a lipoma that causes headaches. On psychiatric evaluation today patient is found calm, cooperative, a little bit irritable, patient says that he doesn' t understand why he was Jensen acted. Patient denies depressive symptoms, he denies anhedonia, he denies hopelessness, he denies helplessness, he denies problems with appetite or concentration. He just reports 5-6 days of total insomnia. He says that he hasn't been able to sleep for at all. For this reason he overdosed with his migraine medication "I just wanted to sleep". At this moment patient denies suicidal or homicidal ideation, he denies visual and auditory hallucinations. No pressured speech, no agitation, no restlessness, no paranoia or delusions are present. However, at times patient seems to be a little bit confused and disorganized, but easily redirectable. Collateral information from his Albina was obtained, : She says that the patient has been disorganized, drinking alcohol and abusing his medication for migraine. She says that he hasn't slept in the last days, and he spent the night pacing around, sometimes talking to himself, and acting very bizarrely. She says that she feels afraid to have him home. She is not very sure that he is taking his psychotropics as he is supposed to be taking them. The patient reports occasional use of marijuana and alcohol, denies other illicit drugs. On my examination today: Patient seen and examined. Chart reviewed. Case discussed with nursing staff. On my examination today, the patient presents as generally euthymic. He says that he has had chronically poor sleep since he was 15 years old. He notes that he will go for a day or 2 without sleep and then crash and sleep for 10-14 hours at a stretch. He says that the 5 days that he has gone without sleep on this occasion are the longest so far. He remains worried that he won't be able to get to sleep, especially now that he is in the hospital. He denies making a suicidal overdose but rather says that he was just trying to get some sleep. He says that he took 5 butalbital and an attempt to get to sleep, forgot he took these and then took 5 more. He says that he must of repeated this process several times because he was told that he took 30 butalbital in total. He denies any suicidal ideation, intent or plan at this time noting that he wants to live for his dog, friends, and his girlfriend. He feels that his mood is relatively stable currently. No depressive or hypomanic/manic symptoms in evidence. Denies ever having experienced audiovisual hallucinations. I can elicit no delusional beliefs. The remainder of the psychiatric ROS is negative. Past psychiatric history: Patient reports a history of generalized anxiety disorder. He reports that this diagnosis was subsequently refined to bipolar disorder. He follows with Dr. Torres in the community and has been seeing him for the last 3 years. He reports 1 prior psychiatric admission between 5 and 10 years ago following an episode of suicide attempt by cutting. This is his only psychiatric admission in suicide attempt. Family history: Patient denies any family history of mental illness. Chemical dependency history: Patient does admit to a history of benzodiazepine abuse and says that he was hospitalized at [facility] for the treatment of this issue. He denies any current abuse of drugs or alcohol. Social history: Patient reports that he has been with his girlfriend of 18 years. He has no children but has 2 pet dogs. He is not presently working. He has 1 year of college. He denies any or legal history. He enjoys bowling. Review of Systems Except as stated in HPI: all other systems reviewed are Neg Respiratory: COMPLAINS OF: Cough Past Family Social History Coded Allergies: No Known Allergies (Unverified , 02/07/17) Past Medical History See electronic medical record Active Scripts Acetylcysteine Liq/Neb 200 mg/ml Soln6,800 Mg PO Q4H #12 ML Ref 0 Prov:Alicia Peralta MD 02/08/17 Reported Medications [place] Carbonate 600 Mg Cjk555 Mg PO BID Ref 0 02/07/17 Trazodone 100 Mg Uqc958 Mg PO HS #30 TAB Ref 0 02/07/17 Quetiapine (Seroquel)100 Mg Lrg343 Mg PO HS #30 TAB Ref 0 02/07/17 Buspirone 5 Mg Tab5 Mg PO DAILY Ref 0 02/07/17 Albuterol 8.5 GM Inh (Proair Hfa 8.5 GM Inh)90 Mcg/Act Aer2 Puff INH Q4-6H PRN ( SHORTNESS OF BREATH) #1 INHALER Ref 0 108 mcg/actuation 02/07/17 Discontinued Reported Medications Nnybpggwtg-Jkoanzz-Xnxxpxwt (Fiorinal)50-325-40 Mg Cap2 Cap PO DAILY PRN ( HEADACHE) Ref 0 Do not exceed 6 capsules/day. 02/07/17 Current Medications Medications (Trade) Dose Ordered Sig/[place] Route Start Time Stop Time Status Last Admin (Ativan) 1 mg Q6H PRN PO 02/08/17 15:30 (Ativan Inj) 1 mg Q6H PRN IM 02/08/17 15:30 (Tylenol) 650 mg Q4H PRN PO 02/08/17 15:30 (Milk Of Magnesia Liq) 30 ml DAILY PRN PO 02/08/17 15:30 (Mag-Al Plus Susp Liq) 30 ml Q6H PRN PO 02/08/17 15:30 (Habitrol 21 Mg Patch.24 Hr) 1 patch DAILY T-DERMAL 02/08/17 15:30 ([place] Carbonate) 600 mg BID PO 02/08/17 21:00 (SEROquel) 100 mg HS PO 02/08/17 21:00 (Desyrel) 100 mg HS PO 02/08/17 21:00 Miscellaneous Information 1 HS T-DERMAL 02/08/17 21:00 Family History See above Social History See above Patient's Strengths (min. 2) In a monitored setting. Verbally fluent. Physical Exam Physical examination completed on the medical floor prior to transfer. On my examination today, patient appears to be in no acute physical distress besides a cough. No motor abnormalities noted. Labs and vital signs reviewed: Vital Signs Item Value Date Time Patient Temperature 97.7 degrees F 02/08/17 1200 Temperature Source Oral 02/08/17 1200 Pulse Rate 84 bpm 02/08/17 1200 Respiratory Rate 18 bpm 02/08/17 1200 Blood Pressure Assessment 139/90 (106) 02/08/17 1200 Location R Arm Source Automatic Cuff Position Sitting Bedside Pulse Oximetry 97 % 02/08/17 1200 Lab Results Item Value Date Time White Blood Count 15.2 TH/MM3 H 02/08/17 0616 Hemoglobin 12.9 GM/DL L 02/08/17 0616 Platelet Count 251 TH/MM3 02/08/17 0616 Sodium Level 142 MEQ/L 02/08/17 0616 Potassium Level 3.6 MEQ/L 02/08/17 0616 Chloride Level 108 MEQ/L H 02/08/17 0616 Carbon Dioxide Level 25.3 MEQ/L 02/08/17 0616 Blood Urea Nitrogen 16 MG/DL 02/08/17 0616 Creatinine 0.90 MG/DL 02/08/17 0616 Aspartate Amino Transf (AST/SGOT) 25 U/L 02/08/17 0616 Alanine Aminotransferase (ALT/SGPT) 44 U/L 02/08/17 0616 Alkaline Phosphatase 93 U/L 02/08/17 0616 Urine Barbiturates Screen POS H 02/07/17 1645 Ethyl Alcohol Level LESS THAN 3 MG/DL 02/07/17 1510 Mental Status Examination Speech: Unremarkable Orientation: x3 Memory: Unremarkable Thought Process: Logical, Goal Directed Thought Content: Unremarkable Hallucination Type: None Attention and Concentration: Good Suicidal Ideation: No Previous Suicide Attempts: Yes Homicidal Ideation: No Previous Homicide Attempts: No Insight: Fair Judgment: Poor Affect: Other (Appropriate) Mood: Euthymic Assessment & Plan Problem List: (1) Chronic insomnia ICD Code: F51.04 (2) History of mood disorder ICD Code: Z86.59 Assessment & Plan Given the circumstances of patient's presentation here in his presentation on my examination today, I concur with Dr. Bass that the patient meets criteria for involuntary psychiatric hospitalization under the Jensen act. In particular, I am concerned that the patient remains at risk for ongoing overdose so long as he remains unable to sleep. I have completed the second opinion paperwork. Further care as per Dr. Bass. Thank you very much for this consultation. Signing off. Chuy Singh MD February 08, 2017 15:51
[2017-02-08 18:43] VITALS: BP 139/79; PULSE 89; RESP 16; TEMP 98; O2SAT 97
[2017-02-08] MEDS: traZODone HCL 100 MG TAB PO SCH (20:30)
[2017-02-08] MEDS: QUEtiapine FUMARATE 100 MG TAB PO SCH (20:30)
[2017-02-08] MEDS: LITHIUM CARBONATE 300 MG CAP PO SCH (20:30)
[2017-02-08] MEDS: LORazepam 1 MG TAB PO PRN (20:33)
[2017-02-08] MEDS: ACETAMINOPHEN 325 MG TAB PO PRN (20:34)
[2017-02-08] MEDS: REMOVE OLD NICODERM (NICOTINE) PATCH T-DERMAL SCH (20:54)
[2017-02-09 06:45] VITALS: BP 117/69; PULSE 95; RESP 18; TEMP 97.4; O2SAT 97
[2017-02-09 06:47] VITALS: BP 117/69; PULSE 95; RESP 18; TEMP 97.4; O2SAT 97
[2017-02-09] MEDS: LITHIUM CARBONATE 300 MG CAP PO SCH ×2 (08:16→21:00)
[2017-02-09 08:20] LABS: ANION GAP 9 MEQ/L (5-15); BICARBONATE 25.6 MEQ/L (21.0-32.0); BLOOD UREA NITROGEN 11 MG/DL (7-18); CHLORIDE 108 MEQ/L (98-107); GLOMERULAR FILTRATION RATE 90 ML/MIN (>89); POTASSIUM 3.6 MEQ/L (3.5-5.1); SODIUM (NA) 143 MEQ/L (136-145)
[2017-02-09] MEDS: NICOTINE 21 MG/24 HR PATCH T-DERMAL SCH (08:20)
[2017-02-09 08:23] LABS: HDL CHOLESTEROL 28.9 MG/DL (40.0-60.0); LDL CHOLESTEROL 67 MG/DL (0-99)
[2017-02-09] MEDS ORDERED: RESP: ALBUTEROL 2.5 MG/IPRATROPIUM 0.5 MG NEB (PRN) NEB (11:15)
[2017-02-09] MEDS: ACETAMINOPHEN 325 MG TAB PO PRN ×2 (11:55→18:15)
--- NOTE | 2017-02-09 12:27 | RADRPT ---
EXAM DATE/TIME: 02/09/2017 11:14 [place] COMPARISON: CHEST SINGLE AP, February 07, 2017, 15:36. INDICATIONS : Cough. MEDICAL HISTORY : asthma, insomnia SURGICAL HISTORY : None. ENCOUNTER: Subsequent ACUITY: 3 days PAIN SCORE: 0/10 LOCATION: Bilateral chest FINDINGS: A single view of the chest demonstrates the lungs to be symmetrically aerated without evidence of mas s, infiltrate or effusion. The cardiomediastinal contours are unremarkable. Osseous structures are intact. CONCLUSION: No acute disease. Xander Quiroz MD FACR on February 09, 2017 at 12:25 Board Certified Radiologist. This report was verified electronically.
[2017-02-09 12:32] LABS: HEMOGLOBIN A1a 1.7 %; HEMOGLOBIN A1b 1.6 %; HEMOGLOBIN Ao 85.1 %; HEMOGLOBIN LA1C 2.1 %; HEMOGLOBIN P3 3.9 %
--- NOTE | 2017-02-09 12:51 | PD.CONS ---
HPI Service [facility] Consult Requested By Psychiatry team Reason for Consult Medical management Primary Care Physician Unknown Diagnoses: History of Present Illness Patient is a 36-year-old male with PMHx of asthma, bipolar disorder, insomnia who came in to the hospital after being found wandering in an art gallery. Patient states he took about 30+ Fioricet tablets because he is desperate to sleep. Reports he's been awake for more than 2-3 days. Patient states that he unintentionally took the medication, without intention to harm himself. Patient was admitted to inpatient unit for Mucomyst administration, monitoring of acetaminophen level. Completed treatment. Acetaminophen level currently less than 2.0. He is now admitted to inpatient psychiatry for further evaluation. Consulted for medical management. Patient seen and examined today. Reports chest congestion, sore throat. Reports history of asthma and states every time he gets exacerbated starts usually with a cold and he develops upper respiratory infection. Reports he is supposed to be taking azithromycin but was unable to because of hospitalization. But this is unclear secondary to patient's condition prior to admission. Reports cough. Otherwise, denies pain and discomfort. Denies SOB/ dyspnea. Denies chest pain, palpitations, headaches, dizziness. Denies fevers, chills, n/v/d. Denies hematuria, dysuria. Review of Systems Except as stated in HPI: all other systems reviewed are Neg Past Family Social History Allergies: Coded Allergies: No Known Allergies (Unverified , 02/07/17) Past Medical History Asthma Bipolar disorder Insomnia Lipoma Thyroid problems without hypo or hyper thyroidism Past Surgical History Umbilical hernia repair with mesh 2 years ago Right hand surgery Left hand Surgery Reported Medications Post inpatient hospitalization Acetylcysteine Liq/Neb (Acetylcysteine) 200 mg/ml Soln 6,800 Mg PO Q4H Reported [place] Carbonate 600 Mg Cap 600 Mg PO BID Trazodone (Trazodone HCl) 100 Mg Tab 100 Mg PO HS Seroquel (Quetiapine Fumarate) 100 Mg Tab 100 Mg PO HS Buspirone (Buspirone HCl) 5 Mg Tab 5 Mg PO DAILY Proair Hfa 8.5 GM Inh (Albuterol Sulfate) 90 Mcg/Act Aer 2 Puff INH Q4-6H PRN 108 mcg/actuation Active Ordered Medications Current Medications Medications (Trade) Dose Ordered Sig/[place] Route Start Time Stop Time Status Last Admin (Ativan) 1 mg Q6H PRN PO 02/08/17 15:30 02/08/17 20:33 (Ativan Inj) 1 mg Q6H PRN IM 02/08/17 15:30 (Tylenol) 650 mg Q4H PRN PO 02/08/17 15:30 02/08/17 20:34 (Milk Of Magnesia Liq) 30 ml DAILY PRN PO 02/08/17 15:30 (Mag-Al Plus Susp Liq) 30 ml Q6H PRN PO 02/08/17 15:30 (Habitrol 21 Mg Patch.24 Hr) 1 patch DAILY T-DERMAL 02/08/17 15:30 02/09/17 08:20 ([place] Carbonate) 600 mg BID PO 02/08/17 21:00 02/09/17 08:16 (SEROquel) 100 mg HS PO 02/08/17 21:00 02/08/17 20:30 (Desyrel) 100 mg HS PO 02/08/17 21:00 02/08/17 20:30 Miscellaneous Information 1 HS T-DERMAL 02/08/17 21:00 02/08/17 20:54 (ZyrTEC) 10 mg HS PO 02/09/17 21:00 Family History Father have heart disease, diabetes Mother alcohol use Social History Lives with girlfriend of 18 years Occasional alcohol use Former smoker, quit 7 years ago, 2 pack per day smoking Previous marijuana use Physical Exam Vital Signs Vital Signs Date Time Temp Pulse Resp B/P Pulse Ox O2 Delivery O2 Flow Rate FiO2 02/09/17 06:47 97.4 95 18 117/69 97 02/08/17 18:43 98.0 89 16 139/79 97 Physical Exam GENERAL: This is a well-nourished, well-developed patient, in no apparent distress. SKIN: Warm and dry. Abrasion right george area HEAD: Normocephalic. No temporal or scalp tenderness. EYES: Pupils equal round and reactive. No scleral icterus. No injection or drainage. ENT: Nose without bleeding. Throat without erythema. Uvula midline. Airway patent. NECK: Trachea midline. No JVD or lymphadenopathy. CARDIOVASCULAR: Tachycardia without murmurs, gallops, or rubs. RESPIRATORY: Rhonchi bilateral anterior lobes. No wheezes. GASTROINTESTINAL: Abdomen soft, non-tender, nondistended. Bowel sounds active 4 MUSCULOSKELETAL: Extremities without clubbing, cyanosis, or edema. No joint tenderness, effusion, or edema noted. NEUROLOGICAL: Awake and alert. Oriented to time, place, person. Motor and sensory grossly within normal limits. Speech is normal Laboratory Laboratory Tests Test 02/08/17 02/09/17 16:36 07:30 [place] Level LESS THAN 0.1 Sodium Level 143 Potassium Level 3.6 Chloride Level 108 Carbon Dioxide Level 25.6 Anion Gap 9 Blood Urea Nitrogen 11 Creatinine 0.95 Estimat Glomerular Filtration 90 Rate Random Glucose 104 Calcium Level 8.6 Triglycerides Level 228 Cholesterol Level 141 LDL Cholesterol 67 HDL Cholesterol 28.9 Cholesterol/HDL Ratio 4.87 Result Diagram: 02/09/17 0730 Imaging Last Impressions Chest X-Ray 02/09/17 0000 Signed Impressions: Service Date/Time: Tuesday, February 09, 2017 11:14 - CONCLUSION: No acute disease. Xander Quiroz MD FACR Assessment and Plan Problem List: (1) Bipolar disorder ICD Code: F31.9 Status: Acute (2) Chronic insomnia ICD Code: F51.04 Status: Acute (3) Overdose by acetaminophen ICD Code: T39.1X1A Status: Acute (4) History of mood disorder ICD Code: Z86.59 Status: Acute Assessment and Plan Patient is a 36-year-old male with PMHx of asthma, bipolar disorder, insomnia who came in to the hospital after being found wandering in an art gallery. Patient states he took about 30+ Fioricet tablets because he is desperate to sleep. Reports he's been awake for more than 2-3 days. Patient states that he unintentionally took the medication, without intention to harm himself. Reports he used to medication secondary to having a lipoma that causes headaches. Fioricet overdose Tylenol overdose - Patient was given Mucomyst and completed treatment. - Acetaminophen level now less than 2.0 Sepsis - SIRS WBC 15.2, HR 96 Pneumonia Asthma, hx - Complaints of chest and nasal congestion. Expectorates dark brown sputum. - Leukocytosis 15.2 with elevated neutrophil count 81.4. Previous temperature inpatient 96.1, 97.4 - Chest x-ray showed no acute disease, however radiologic findings may be delayed accuracy in detecting early interstitial stage - Duonebs scheduled and PRN, zyrtec qhs - Incentive spirometer, Acapella - Blood Cultures, Lactic Acid - Levaquin 750mg x7 days Mood disorder, bipolar disorder - managed by psychiatry team DVT prop early ambulation Written by Marcelo Resendez, acting as scribe for Dr. Davis on 02/09/17 at 16:10. This note was transcribed by scribe Marcelo PEREZ. I, Dr. Cara Davis personally performed the history, physical exam, and medical decision making; and confirmed the accuracy of the information in the transcribed note. Authenticated by Dr. Cara Davis on 02/09/17 at 16:10. Code Status Full code Discussed Condition With Patient, nursing Problem Qualifiers (1) Bipolar disorder: Marcelo Amaya February 09, 2017 12:50 Cara Davis MD February 09, 2017 14:43
--- NOTE | 2017-02-09 14:59 | HHI.PYPN ---
Subjective Remarks On psychiatric evaluation today patient endorses good mood, he is requesting to be discharged, he says that he would be able to continue his psychiatric care is as an outpatient, however, still circumstantial, with periodic disorganized thought, his lithium level is 0.1, meaning that he was not taking his medications at home. He says that he slept about 3 hours last night. He denies suicidal or homicidal ideation, he denies visual and auditory hallucinations. He has been compliant with medications in the unit, no side effects reported, no agitation, no aggressive behavior reported. Review of Systems Other No somatic complaints Objective Alert: Yes [place]: Person, Place, Situation Mood: Anxious, Other (elevated) Affect: Manic Memory Intact: Immediate, Recent, Remote Hallucinations: Other (he denies) Delusions: No Delusion Type: Other (none elicited) Suicidal: Ideation (he denies) Homicidal: Ideation (he denies) Insight/Judgment Poor Labs Test 02/08/17 02/09/17 16:36 07:30 [place] Level LESS THAN 0.1 MEQ/L Sodium Level 143 MEQ/L Potassium Level 3.6 MEQ/L Chloride Level 108 MEQ/L Carbon Dioxide Level 25.6 MEQ/L Anion Gap 9 MEQ/L Blood Urea Nitrogen 11 MG/DL Creatinine 0.95 MG/DL Estimat Glomerular Filtration 90 ML/MIN Rate Random Glucose 104 MG/DL Hemoglobin A1c 5.4 % Calcium Level 8.6 MG/DL Triglycerides Level 228 MG/DL Cholesterol Level 141 MG/DL LDL Cholesterol 67 MG/DL HDL Cholesterol 28.9 MG/DL Cholesterol/HDL Ratio 4.87 RATIO Vitals/IOs Vital Signs Date Time Temp Pulse Resp B/P Pulse Ox O2 Delivery O2 Flow Rate FiO2 02/09/17 06:47 97.4 95 18 117/69 97 Intake and Output 02/08/17 02/08/17 02/08/17 07:59 15:59 23:59 Intake Total 360 ml Balance 360 ml Assessment & Plan Problem List: (1) Bipolar disorder Assessment & Plan: Patient continues to be kind of disorganized, circumstantial , unable to elaborate about recent suicidal attempt, Will continue current psychotropic regimen. ICD Code: F31.9 Assessment & Plan Estimated LOS: days Justification for Cont. Inpt. Patient is acutely manic, has an elevated risk to decompensate and underfunction out of an structure environment Problem Qualifiers (1) Bipolar disorder: Paulie Bass MD February 09, 2017 14:59
[2017-02-09] MEDS: LEVOFLOXACIN 750 MG TAB PO SCH (16:15)
[2017-02-09 19:41] VITALS: BP 137/87; PULSE 89; RESP 18; TEMP 97.6; O2SAT 97
[2017-02-09 20:23] LABS: AUTOMATED NEUTROPHIL # 5.9 TH/MM3 (1.8-7.7); BASOPHIL % 0.5 % (0.0-2.0); EOSINOPHIL # 0.3 TH/MM3 (0-0.4); EOSINOPHIL % 3.4 % (0.0-4.0); HEMATOCRIT 41.7 % (39.0-51.0); LYMPH % 20.2 % (9.0-44.0); LYMPHOCYTE # 1.8 TH/MM3 (1.0-4.8); MEAN CELL VOLUME 92.8 FL (80.0-100.0); MEAN CORPUSCULAR HEMOGLOBIN 31.9 PG (27.0-34.0); MEAN CORPUSCULAR HGB CONC 34.3 % (32.0-36.0); MONO % 8.2 % (0.0-8.0); NEUT % 67.7 % (16.0-70.0); PLATELET COUNT 284 TH/MM3 (150-450); RED BLOOD COUNT 4.49 MIL/MM3 (4.50-5.90); RED CELL DISTRIBUTION WIDTH 13.5 % (11.6-17.2); WHITE BLOOD COUNT 8.7 TH/MM3 (4.0-11.0)
[2017-02-09 20:27] LABS: HEMO FLAGS AUTO DIFF
[2017-02-09 20:54] LABS: SCAN/DIFF AUTO DIFF CONFIRMED
[2017-02-09] MEDS: QUEtiapine FUMARATE 100 MG TAB PO SCH (21:00)
[2017-02-09] MEDS: REMOVE OLD NICODERM (NICOTINE) PATCH T-DERMAL SCH (21:00)
[2017-02-09] MEDS: traZODone HCL 100 MG TAB PO SCH (21:00)
[2017-02-09] MEDS ORDERED: CETIRIZINE HCL 10 MG TAB PO SCH (21:00)
[2017-02-09] MEDS: LORazepam 1 MG TAB PO PRN (21:15)
[2017-02-09] MEDS: RESP: ALBUTEROL 2.5 MG/IPRATROPIUM 0.5 MG NEB (SCH) NEB (21:35)
[2017-02-10 06:26] VITALS: BP 128/71; PULSE 89; RESP 18; TEMP 97.6; O2SAT 95
[2017-02-10] MEDS: RESP: ALBUTEROL 2.5 MG/IPRATROPIUM 0.5 MG NEB (SCH) NEB (07:10)
[2017-02-10 08:00] LABS: AUTOMATED NEUTROPHIL # 6.5 TH/MM3 (1.8-7.7); BASOPHIL % 0.5 % (0.0-2.0); EOSINOPHIL # 0.3 TH/MM3 (0-0.4); EOSINOPHIL % 2.6 % (0.0-4.0); HEMATOCRIT 41.8 % (39.0-51.0); HEMO FLAGS DIFF FINAL; LYMPH % 25.6 % (9.0-44.0); LYMPHOCYTE # 2.6 TH/MM3 (1.0-4.8); MEAN CELL VOLUME 93.5 FL (80.0-100.0); MEAN CORPUSCULAR HEMOGLOBIN 31.7 PG (27.0-34.0); MEAN CORPUSCULAR HGB CONC 33.9 % (32.0-36.0); MONO % 7.2 % (0.0-8.0); NEUT % 64.1 % (16.0-70.0); PLATELET COUNT 257 TH/MM3 (150-450); RED BLOOD COUNT 4.47 MIL/MM3 (4.50-5.90); RED CELL DISTRIBUTION WIDTH 13.3 % (11.6-17.2); WHITE BLOOD COUNT 10.1 TH/MM3 (4.0-11.0)
[2017-02-10] MEDS ORDERED: NICO21DI2 T-DERMAL (09:49)
[2017-02-10] MEDS ORDERED: CETI10 PO (09:49)
[2017-02-10] MEDS ORDERED: LEVA750T PO (09:49)
--- NOTE | 2017-02-10 09:50 | HHI.PR ---
Subjective Remarks Follow-up visit sepsis, chest congestion and nasal congestion, history of asthma , overdose of Fioricet. Patient seen and examined today. Reports congestion has improved. Denies pain and discomfort. Denies SOB/ dyspnea. Denies chest pain, palpitations, headaches, dizziness. Denies fevers, chills, n/v/d. Denies hematuria, dysuria. Plan to discharge home today. Discussed with patient importance of medication compliance, avoidance of tobacco, including vaping. Objective Vitals Vital Signs Date Time Temp Pulse Resp B/P Pulse Ox O2 Delivery O2 Flow Rate FiO2 02/10/17 06:26 97.6 89 18 128/71 95 02/09/17 19:41 97.6 89 18 137/87 97 I/O 02/09/17 02/09/17 02/09/17 02/10/17 02/10/17 02/10/17 07:00 15:00 23:00 07:00 15:00 23:00 Intake Total 480 ml 1080 ml Balance 480 ml 1080 ml Intake Oral 480 ml 1080 ml # Voids 2 5 Result Diagram: 02/10/17 0644 02/09/17 0730 Imaging Last Impressions Chest X-Ray 02/09/17 0000 Signed Impressions: Service Date/Time: Thursday, February 09, 2017 11:14 - CONCLUSION: No acute disease. Xander Quiroz MD FACR Objective Remarks GENERAL: This is a well-nourished, well-developed patient, in no apparent distress. SKIN: Warm and dry. Abrasion right george area HEAD: Normocephalic. No temporal or scalp tenderness. Frontal sinus tenderness. EYES: Pupils equal round and reactive. No scleral icterus. No injection or drainage. ENT: Nose without bleeding. Throat without erythema. Uvula midline. Airway patent. NECK: Trachea midline. No JVD or lymphadenopathy. CARDIOVASCULAR: Tachycardia without murmurs, gallops, or rubs. RESPIRATORY: Rhonchi left lower lobe. No wheezes. GASTROINTESTINAL: Abdomen soft, non-tender, nondistended. Bowel sounds active 4 MUSCULOSKELETAL: Extremities without clubbing, cyanosis, or edema. No joint tenderness, effusion, or edema noted. NEUROLOGICAL: Awake and alert. Oriented to time, place, person. Motor and sensory grossly within normal limits. Speech is normal A/P Problem List: (1) Bipolar disorder ICD Code: F31.9 Status: Acute (2) Chronic insomnia ICD Code: F51.04 Status: Acute (3) Overdose by acetaminophen ICD Code: T39.1X1A Status: Acute (4) History of mood disorder ICD Code: Z86.59 Status: Acute Assessment and Plan Patient is a 36-year-old male with PMHx of asthma, bipolar disorder, insomnia who came in to the hospital after being found wandering in an art gallery. Patient states he took about 30+ Fioricet tablets because he is desperate to sleep. Reports he's been awake for more than 2-3 days. Patient states that he unintentionally took the medication, without intention to harm himself. Reports he used to medication secondary to having a lipoma that causes headaches. Fioricet overdose Tylenol overdose - Patient was given Mucomyst and completed treatment. - Acetaminophen level now less than 2.0 Sepsis - SIRS WBC 15.2, HR 96 Pneumonia Asthma, hx - Complaints of chest and nasal congestion. Expectorates dark brown sputum. - Leukocytosis 15.2 with elevated neutrophil count 81.4. Previous temperature inpatient 96.1, 97.4 - Chest x-ray showed no acute disease, however radiologic findings may be delayed accuracy in detecting early interstitial stage - Duonebs scheduled and PRN, zyrtec qhs - Incentive spirometer, Acapella - Blood Cultures no growth in one day , Lactic Acid 1.3. Afebrile today. Congestion has improved. - Levaquin 750mg. DC home with Levaquin - Discuss with patient importance of compliance, avoidance of tobacco and tobacco products, including draping. Nicotine patch prescription provided. - Verbalized understanding of instructions. Follow-up with PCP. Mood disorder, bipolar disorder - managed by psychiatry team DVT prop early ambulation Discussed with patient, nursing Problem Qualifiers (1) Bipolar disorder: Marcelo Amaya February 10, 2017 09:50 Cara Davis MD February 10, 2017 20:16
[2017-02-10] MEDS: LEVOFLOXACIN 750 MG TAB PO SCH (09:53)
[2017-02-10] MEDS: LITHIUM CARBONATE 300 MG CAP PO SCH (09:54)
[2017-02-10] MEDS: NICOTINE 21 MG/24 HR PATCH T-DERMAL SCH (09:54)
--- NOTE | 2017-02-10 13:13 | HHI.DS ---
Psychiatry Discharge Summary Inpatient Psychiatric care?: Yes Advance Directive: No Reason Not Provided: patient declined Mental Health AdvanceDirective: No Health Care Proxy: No Admission Admission Date February 08, 2017 at 14:35 Admission Diagnosis: (1) Bipolar disorder ICD Code: F31.[address] Bass's H&P: Patient is a 36-year-old man, domiciled in [place] with girlfriend, unemployed, with psychiatric history of bipolar disorder, 1 previous hospitalization, no previous suicidal attempts, active outpatient care with Dr. Torres, he is on trazodone 100 mg, Seroquel 100 mg, lithium 600 mg twice a day, medical history of asthma, who came in to the hospital after being found wandering in an art gallery. Patient states he took about 30+ Fioricet tablets because he is desperate to sleep. Reports he's been awake for more than 2-3 days. Patient states that he unintentionally took the medication, without intention to harm himself. Reports he used to medication secondary to having a lipoma that causes headaches. On psychiatric evaluation today patient is found calm, cooperative, a little bit irritable, patient says that he doesn' t understand why he was Jensen acted. Patient denies depressive symptoms, he denies anhedonia, he denies hopelessness, he denies helplessness, he denies problems with appetite or concentration. He just reports 5-6 days of total insomnia. He says that he hasn't been able to sleep for at all. For this reason he overdosed with his migraine medication "I just wanted to sleep". At this moment patient denies suicidal or homicidal ideation, he denies visual and auditory hallucinations. No pressured speech, no agitation, no restlessness, no paranoia or delusions are present. However, at times patient seems to be a little bit confused and disorganized, but easily redirectable. Collateral information from his Albina was obtained, : She says that the patient has been disorganized, drinking alcohol and abusing his medication for migraine. She says that he hasn't slept in the last days, and he spent the night pacing around, sometimes talking to himself, and acting very bizarrely. She says that she feels afraid to have him home. She is not very sure that he is taking his psychotropics as he is supposed to be taking them. The patient reports occasional use of marijuana and alcohol, denies other illicit drugs. On my examination today: Patient seen and examined. Chart reviewed. Case discussed with nursing staff. On my examination today, the patient presents as generally euthymic. He says that he has had chronically poor sleep since he was 15 years old. He notes that he will go for a day or 2 without sleep and then crash and sleep for 10-14 hours at a stretch. He says that the 5 days that he has gone without sleep on this occasion are the longest so far. He remains worried that he won't be able to get to sleep, especially now that he is in the hospital. He denies making a suicidal overdose but rather says that he was just trying to get some sleep. He says that he took 5 butalbital and an attempt to get to sleep, forgot he took these and then took 5 more. He says that he must of repeated this process several times because he was told that he took 30 butalbital in total. He denies any suicidal ideation, intent or plan at this time noting that he wants to live for his dog, friends, and his girlfriend. He feels that his mood is relatively stable currently. No depressive or hypomanic/manic symptoms in evidence. Denies ever having experienced audiovisual hallucinations. I can elicit no delusional beliefs. The remainder of the psychiatric ROS is negative. Past psychiatric history: Patient reports a history of generalized anxiety disorder. He reports that this diagnosis was subsequently refined to bipolar disorder. He follows with Dr. Torres in the community and has been seeing him for the last 3 years. He reports 1 prior psychiatric admission between 5 and 10 years ago following an episode of suicide attempt by cutting. This is his only psychiatric admission in suicide attempt. Family history: Patient denies any family history of mental illness. Chemical dependency history: Patient does admit to a history of benzodiazepine abuse and says that he was hospitalized at [facility] for the treatment of this issue. He denies any current abuse of drugs or alcohol. Social history: Patient reports that he has been with his girlfriend of 18 years. He has no children but has 2 pet dogs. He is not presently working. He has 1 year of college. He denies any or legal history. He enjoys bowling. Tobacco Use In Past 30 Days: 5 or More Cigarettes/Day Alcohol Use: 2-3 Times Per Week Hospital Course Patient was transferred to the med psych unit for medical floor. Appropriate safety measures were taken. Patient had an initial psychiatric and psychosocial assessment. At the beginning of the hospitalization patient was hypomanic, he was insomniac for 6 days. His medication lithium, Seroquel were titrated up, trazodone 100 mg was added. Patient showed a very good response to psychotropic regimen, no significant side effects. Patient participated in the unit and individual and group therapy. No aggressive behavior, no agitation were reported. Patient was fully compliant with his medication. Family meeting by phone with his girlfriend was done. She was informed of the progression of the patient. At the moment of discharge the patient does not present any concern of manic behavior or symptomatology. Results Blood Pressure 128 / 71 Vital Signs Date Time Temp Pulse Resp B/P Pulse Ox O2 Delivery O2 Flow Rate FiO2 02/10/17 06:26 97.6 89 18 128/71 95 Laboratory Tests Test 02/08/17 02/09/17 02/09/17 02/10/17 16:36 07:30 19:37 06:44 [place] Level LESS THAN 0.1 MEQ/L (0.5-1.5) Chloride Level 108 MEQ/L (98-107) Triglycerides Level 228 MG/DL (42-150) HDL Cholesterol 28.9 MG/DL (40.0-60.0) Red Blood Count 4.49 MIL/MM3 4.47 MIL/MM3 (4.50-5.90) (4.50-5.90) Monocytes (%) (Auto) 8.2 % (0.0-8.0) Laboratory Results Test 02/08/17 02/09/17 16:36 07:30 [place] Level LESS THAN 0.1 MEQ/L (0.5-1.5) Hemoglobin A1c 5.4 % (4.3-6.0) Triglycerides Level 228 MG/DL (42-150) Cholesterol Level 141 MG/DL (120-200) LDL Cholesterol 67 MG/DL (0-99) HDL Cholesterol 28.9 MG/DL (40.0-60.0) Summary of Procedures Patient did not have any special procedures Imaging Last Impressions Chest X-Ray 02/09/17 0000 Signed Impressions: Service Date/Time: Thursday, February 09, 2017 11:14 - CONCLUSION: No acute disease. Xander Quiroz MD FACR Pending results at discharge: No Medications # of Antipsychotic meds at D/C: 1 Approp Antipsych med options 1 - Minimum of three failed multiple trials of monotherapy. 2 - Documented plan to taper to monotherapy due to previous use of multiple meds OR cross-taper in progress at D/C. 3 - Documentation of augmentation of Clozapine. 4 - Justification other than those listed in allowable values 1-3, document here : Discharge Discharge Date: February 10, 2017 Discharge Diagnosis: (1) Bipolar disorder ICD Code: F31.9 Mental Status Exam at Disch man, good hygiene, on the street clothes, age appearing, calm, cooperative and pleasant, his his speech is fluent and assessment sadness, he described his mood as fine, affect is appropriate. Thought process is logical, coherent and relevant. Thought content is devoid of visual hallucination, auditory hallucination suicidal or homicidal ideation, no paranoia, no delusions. Insight, judgment and impulse control are good. His memory is intact. Pt Condition on Discharge: Stable Discharge Disposition: Discharge Home Discharge Instructions Diet Instructions: As Tolerated, No Restrictions Activities you can perform: Regular-No Restrictions Scheduled Appointment: Private Psychiatrist Appointment Date: February 17, 2017 Appointment Time: 08:40pm Discharge Time > 30 minutes Discharge/Advance Care Plan Health Problems: (1) Bipolar disorder Goals to promote your health * To prevent worsening of your condition and complications * To maintain your health at the optimal level Directions to meet your goals Take your medications as prescribed Follow your dietary instruction Follow activity as directed Keep your appointments as scheduled Take your immunizations and boosters as scheduled If your symptoms worsen call your PCP, if no PCP go to Urgent Care Center or Emergency Room For 25/04 questions related to your inpatient stay or results of tests pending at discharge, please contact Dr. Paulie Bass at Smoking is Dangerous to Your Health. Avoid second hand smoking Problem Qualifiers (1) Bipolar disorder: Paulie Bass MD February 10, 2017 13:12
== END 2017-02-10 13:15 | disposition home or self-care (01) | DRG 885 ==
LOC: H4EA 14:35
PROVIDERS: ADMIT Psychiatry & Neurology Psychiatry; ATTEND Psychiatry & Neurology Psychiatry
DX: F31.60 Bipolar disorder, current episode mixed, unspecified (principal); J18.9 Pneumonia, unspecified organism; F51.04 Psychophysiologic insomnia; G43.909 Migraine, unspecified, not intractable, without status migrainosus; J45.909 Unspecified asthma, uncomplicated; F12.90 Cannabis use, unspecified, uncomplicated; F41.1 Generalized anxiety disorder; T39.1X1A Poisoning by 4-Aminophenol derivatives, accidental (unintentional), initial encounter; Z87.891 Personal history of nicotine dependence; Z91.5 Personal history of self-harm
CPT/HCPCS: 71010; 80048; 80061; 80178; 83036; 83605; 85025; 87040; 94640; 94664